=== PATIENT | male | born 1990 | race Caucasian/White ===

== ENCOUNTER 2017-01-03 07:31 | Inpatient (IN) | payer BC, OTHER ==
[~2017-01-03] VITALS: Ht 172.7 cm; Wt 81.6 kg
[~2017-01-03 07:31] MED LIST: CEPH-570 PO; DOXY100T2 PO; Gabapentin PO; HYDR-3895 PO; IBUP-1955 PO; LACT1CAP57 PO; METH-33 PO; MULT-465 PO; NAPR220C15 PO; OMEP20CA10 PO
[2017-01-03 12:05] VITALS: BP 120/65
[2017-01-03] MEDS ORDERED: BUPRENORPHINE HCL 2 MG TAB.SUBL SL PRN (13:45)
[2017-01-03] MEDS ORDERED: MAG HYDROX/AL HYDROX/SIMETH 30 ML LIQUID UDC PO PRN (13:45)
[2017-01-03] MEDS ORDERED: ACETAMINOPHEN 325 MG TABLET PO PRN (13:45)
[2017-01-03] MEDS ORDERED: LOPERAMIDE HCL 2 MG CAPSULE PO PRN ×2 (13:45)
[2017-01-03] MEDS ORDERED: MIRALAX 17 GM POWD.PACK PO PRN (13:45)
[2017-01-03] MEDS ORDERED: diphenhydrAMINE 50 MG CAPSULE PO PRN (13:45)
[2017-01-03] MEDS ORDERED: LORAZEPAM 1 MG TABLET PO PRN ×2 (13:45)
[2017-01-03] MEDS ORDERED: CLONIDINE HCL 0.1 MG TABLET PO PRN (13:45)
[2017-01-03] MEDS ORDERED: LORAZEPAM 2 MG/1 ML VIAL IM PRN (13:45)
[2017-01-03] MEDS ORDERED: MAGNESIUM HYDROXIDE 30 ML LIQUID UDC PO PRN (13:45)
[2017-01-03] MEDS ORDERED: DICYCLOMINE HCL 20 MG TABLET PO PRN (13:45)
[2017-01-03] MEDS ORDERED: HYDROXYZINE PAMOATE 25 MG CAPSULE PO PRN (13:45)
[2017-01-03] MEDS ORDERED: METHOCARBAMOL 750 MG TABLET PO PRN (13:45)
[2017-01-03] MEDS ORDERED: ONDANSETRON ODT 4 MG TAB.RAPDIS SL PRN (13:45)
[2017-01-03] MEDS ORDERED: CEPHALEXIN MONOHYDRATE 500 MG CAPSULE PO SCH (13:45)
--- NOTE | 2017-01-03 14:35 | NUR ---
ADMISSION NOTE VS:B/P:120/65, HR:124, SpO2:99% RA, RR:18, Temp:98.0, Pain 0/10. Height: 5'8, Weight:180 Allergies:EDDI Pt is a 26 year old male admitted to [facility] on 01/03/17 at 1157 under the care of Dr. Galarza for ETOH/Benzo/Opiate dependence. Pt denies SI/HI at this time. Pt is A/O x4. Pt reports being discharged from [facility] in Nov. Pt denies SOB and denies Chest pain. Pt reports increased heart rate is related to one time methamphetamine use last night. Pt did not bring any home medications. Upon assessment, skin is intact but closed abscess noted on left arm (anteriorly and posteriorly), MD is aware and has contacted wound team to assess. Pt also noted to have round lump on upper left back. CIWA 4, COWS 7 upon admission. Pt is Full code, regular diet. Pt denies having history of seizures and denies having a PCP. Breathing is even and unlabored, SpO2 is 99% room air. Pt ambulates with a steady gait. Pt states bowel habits are normal. Pt reports living with friends and moves around often. Hx of depression. Pt refuses the Flu and PNA vaccination. Pt states he smokes approximately [address] Galarza has been notified and has assessed client. All needs have been met. Pt has been oriented to room and unit. All safety measures in place per hospital policy. Bed in lowest position, side rails up x2, call light within reach. Will continue to monitor. Substance use: ETOH:Vodka/Beer-10oz vodka and 8 (12-16 oz) beers daily for 3 weeks, last drank 4 beers and 6 oz Vodka 01/03/17 at 0500. Xanax: 6mg for 3 weeks, last took 2mg 01/02/17 at 2200. Heroin:1/2gram for 3 weeks, last used 1/2 gram on 01/03/17 at 1100. Addendum: 01/03/17 at 1520 by TERESA HURT RN Pt reports smoking "a couple of hits" of methamphetamine last night but reports he has not used this drug other times.
[2017-01-03 14:59] LABS: BASOPHILS # (AUTO) 0.1 K/uL (0.0-0.2); BASOPHILS % (AUTO) 0.6 % (0.0-2.0); EOSINOPHILS % (AUTO) 0.2 % (0.0-7.0); HEMOGLOBIN 15.5 g/dL (14.0-18.0); LYMPHOCYTES # (AUTO) 2.3 K/uL (0.8-4.8); LYMPHOCYTES % (AUTO) 25.1 % (20.5-51.5); MEAN CORPUSCULAR HEMOGLOBIN 28.8 uug (27.0-31.0); MEAN CORPUSCULAR HGB CONC 34 g/dL (32.0-37.0); MEAN CORPUSCULAR VOLUME 85.3 fL (82.0-92.0); MONOCYTES # (AUTO) 0.7 K/uL (0.1-1.30); MONOCYTES % (AUTO) 8.2 % (0.0-11.0); NEUTROPHILS % (AUTO) 65.9 % (38.5-71.5); PLATELET COUNT (AUTO) 279 K/uL (150-450); RED BLOOD CELL COUNT(AUTO) 5.39 MIL/uL (4.70-6.10); RED CELL DISTRIBUTION WIDTH 13.2 % (11.5-14.5); WHITE BLOOD COUNT (AUTO) 9.1 K/uL (4.0-11.2)
[2017-01-03 15:05] LABS: *AMPHETAMINE, URINE POSITIVE (NEGATIVE); *BARBITURATE, URINE NEGATIVE (NEGATIVE); *CANNABINOID, URINE NEGATIVE (NEGATIVE); *COCCAINE, URINE NEGATIVE (NEGATIVE); *OPIATE, URINE POSITIVE (NEGATIVE); *PHENCYCLIDINE SCREEN,URINE NEGATIVE (NEGATIVE)
[2017-01-03 15:19] LABS: ALANINE AMINOTRANSFERASE 33 U/L (16-63); ALBUMIN 4.2 g/dL (3.4-5.0); ALKALINE PHOSPHATASE 43 U/L (50-136); ASPARTATE AMINOTRANSFERASE 26 U/L (15-37); BILIRUBIN,TOTAL 0.7 mg/dL (0.2-1.0); CALCIUM 9.3 mg/dL (8.5-10.1); CARBON DIOXIDE 26 mmol/L (21-32); CHLORIDE 100 mmol/L (98-107); CREATININE 1.1 mg/dL (0.6-1.3); GFR 80 mL/min (>60); GLUCOSE 122 mg/dL (74-106); POTASSIUM 3.3 mmol/L (3.5-5.1); SODIUM SERUM 139 mmol/L (136-145); TOTAL PROTEIN, SERUM 8.4 g/dL (6.4-8.2); UREA NITROGEN, BLOOD 14 mg/dL (7-18)
[2017-01-03 15:28] LABS: HIV-1 p24 ANTIGEN NON REACTIVE (NONREACTIVE); HIV-1/2 ANTIBODY NON REACTIVE (NONREACTIVE)
[2017-01-03 15:38] LABS: ETHANOL < 3 MG/DL (0-0)
[2017-01-03] MEDS: GABAPENTIN 300 MG CAPSULE PO SCH (16:51)
[2017-01-03] MEDS ORDERED: DOXYCYCLINE HYCLATE 100 MG TABLET PO SCH (17:00)
[2017-01-03] MEDS ORDERED: Medication Not On Formulary EA ([Gabapentin] (Neurontin) 300 MG) PO SCH (17:00)
[2017-01-03 17:20] VITALS: BP 107/64
--- NOTE | 2017-01-03 18:32 | NUR ---
END OF SHIFT Pt is a 26 year old male admitted for ETOH, Benzo and Opiate dependence. Pt is A/O x4. V/S remain WNL. EKG was completed. Pt is receiving PO antibiotics for abscess on arms, awaiting I&D consult. No PRN medications were needed or administered throughout shift. Pt has 3 day Subutex taper to be started on 01/04/17. Pt denies hx of seizures. Pt reports history of positive hep xc antibody, depression and sleeping disorder. MRSA swab collected, results are pending. Most recent COWS 4 and CIWA 4. All needs met at this time, safety precautions are in place, night time babysitter nurse to continue monitoring.
--- NOTE | 2017-01-03 19:45 | NUR ---
START OF SHIFT NOTE Received report from day shift nurse. Pt is 26 y o male, admitted on 01/03/17 for ETOH (8 x 12 -16oz beers and 10 oz of vodka daily for 3 weeks), Xanax (6 mg daily for 3 weeks), heroin (0.5 mg daily for 3 weeks), methamphetamine dependence. Pt placed on 3 day Subutex taper to be started 01/04/17; has prn Ativan available for tonight. Pt in room ,asleep. Awakened by verbal stimuli, oriented x 3. Pt reports mild anxiety, noted mild sweating. No tremors noted, pupils PERRLA 3 mm bilat. Noted closed abscess on left arm, pt is on PO antibiotics. Lung sounds clear bilat, heart rate regular. Pt denies n/v/, bowel sounds active 4. Pt denies urinary difficulties. PMH of depression, sleep disorder; Hep C. Pt full code, NKA, regular diet. Pt is on fall precautions. Side rails up x 2, call light within reach, bed locked in lowest position. Will continue with plan of care.
[2017-01-03 20:00] VITALS: BP 97/55
[2017-01-03] MEDS: SULFAMETH/TRIMETH 800/160 MG TABLET PO SCH (21:01)
[2017-01-03] MEDS: CEPHALEXIN MONOHYDRATE 500 MG CAPSULE PO SCH (21:01)
[2017-01-03] MEDS: LACTOBACILLUS RHAMNOSUS GG 1 EACH CAPSULE PO SCH (21:01)
[2017-01-04] VITALS: BP 102/57
[2017-01-04 04:11] VITALS: BP 100/55
[2017-01-04] MEDS ORDERED: POTASSIUM CHLORIDE 20 MEQ TAB.PRT.SR PO ONE (06:00)
[2017-01-04] MEDS: PANTOPRAZOLE SODIUM 40 MG TABLET.DR PO SCH (06:51)
--- NOTE | 2017-01-04 07:21 | NUR ---
END OF SHIFT NOTE Pt is 26 y o male, admitted on 01/03/17 for ETOH (8 x 12 -16oz beers and 10 oz of vodka daily for 3 weeks), Xanax (6 mg daily for 3 weeks), heroin (0.5 mg daily for 3 weeks), methamphetamine dependence. Pt is to start 3 day Subutex taper on 01/04/17; has prn Ativan available per CIWA scores. Pt was asleep for 11 hrs; withdrawal s/s included sweats, palpable tremors. VSS. Last COWS 4, CIWA 2. No prn medications were given. Labs revealed k level of 3.3, was replaced with KDur 40 meq at 0600 on 01/04/17. No prn medications were given. Pt has closed abscess on left arm, pt is on PO antibiotics, has order for moist warm compresses for 15 min q 1hr. PMH of depression, sleep disorder; Hep C. Pt full code, NKA, regular diet. Pt is on fall precautions. Report endorsed to day shift nurse.
[2017-01-04 08:00] VITALS: BP 113/66
--- NOTE | 2017-01-04 08:00 | NUR ---
START OF SHIFT Pt 26 y/o male admitted for etoh benzo opiate withdrawal. Pt received in room with eyes closed resting, but easily arousable to name. Pt alert and oriented to name, place, and time. Perrla. Skin warm and slightly moist to touch. Respirations even unlabored. It was reported that pt slept for 11 hours last night. Bed on lowest position with side rails x2 up for safety. Call light within reach. No distress noted at this time.
[2017-01-04] MEDS: SULFAMETH/TRIMETH 800/160 MG TABLET PO SCH (09:00)
[2017-01-04] MEDS ORDERED: Medication Not On Formulary EA (Omeprazole 1 CAP) PO SCH (09:00)
[2017-01-04] MEDS: DOCUSATE SODIUM 250 MG CAPSULE PO SCH (09:00)
[2017-01-04] MEDS: CEPHALEXIN MONOHYDRATE 500 MG CAPSULE PO SCH ×4 (09:00→22:11)
[2017-01-04] MEDS: GABAPENTIN 300 MG CAPSULE PO SCH ×3 (09:00→17:01)
[2017-01-04] MEDS: LACTOBACILLUS RHAMNOSUS GG 1 EACH CAPSULE PO SCH ×2 (09:00→22:11)
[2017-01-04] MEDS: BUPRENORPHINE HCL 2 MG TAB.SUBL SL SCH ×2 (09:00→22:12)
[2017-01-04] MEDS ORDERED: TUBERCULIN,PURIF.PROT.DERIV. 5 TU/0.1 ML TEST ID ONE (09:00)
[2017-01-04] MEDS: MULTIVITAMINS,THERAPEUTIC TABLET PO SCH (09:00)
[2017-01-04] MEDS ORDERED: 3 DAY TAPER BUPRENORPHINE -SERENITY PROTOCOL SL PRN (09:00)
[2017-01-04 10:07] LABS: HCV AB >11.0 s/co ratio (0.0-0.9); HEPATITIS B CORE AB, IgM Negative (Negative); HEPATITIS B SURFACE AG Negative (Negative)
--- NOTE | 2017-01-04 11:30 | NUR ---
PRN COWS=14. Pt observed in bed with visible perspiration and c/o body aches, goosebumps, and runny nose. Subutex 4mg po prn per MD order given and tolerated well.
--- NOTE | 2017-01-04 11:47 | NUR ---
PRN Pt with c/o anxiety. Catapres po prn per MD order given and tolerated well.
[2017-01-04 12:00] VITALS: BP 110/61
[2017-01-04 16:00] VITALS: BP 108/61
--- NOTE | 2017-01-04 18:28 | NUR ---
END OF SHIFT Pt 26 y/o male admitted for etoh benzo opiate withdrawal. Pt alert and oriented to name, place, and time. Perrla. Skin warm and slightly moist to touch. Respirations even unlabored. Pt observed in room all day mostly in bed. Pt did not attend group activity even with encouragement. Pt was seen Pt was seen by infectious disease doctor this evening. Pt medication compliant and tolerated well. No ASE noted. Bed on lowest position with side rails x2 up for safety. Call light within reach. No distress noted at this time.
--- NOTE | 2017-01-04 19:15 | NUR ---
START OF SHIFT Received 26 year old male patient admitted on 01/03/17 for ETOH, Benzo, heroin and methamphetamine dependency. Pt is full code with NKA. He reports a PMhx of Hep C +, depression and sleep disorder. He reports drinking vodka 10 oz, and beer 12-16 oz daily for 3 weeks. Last dose was 4 beers and 6 oz of vodka on 01/03/17. Xanax 6 mg daily for 3 weeks. Last dose 2 mg on 01/02/17 and Heroin 0.5 gram daily for 3 weeks. Last dose 0.5 gram on 01/03/17. And Methamphetamine IV " couple of hits" Last dose was on 01/02/17. Pt placed on 3 day Subutex taper and has PRN Ativan available. Per endorsement, pt with left arm abscess and has new order for Bactrim IV. Pt is alert and oriented x4, breathing is even and unlabored, safety measures in place. Will continue to monitor.
[2017-01-04 20:00] VITALS: BP 116/72
--- NOTE | 2017-01-04 20:29 | NUR ---
NURSING NOTE Pt refused warm compress. Risks/benefits explained x3, pt still refused. Encouraged pt to keep left arm elevated. Pt verbalized understanding. Breathing even and unlabored, safety measures in place. Will continue to monitor.
[2017-01-04] MEDS: SULFAMETHOXAZOL/TRIMETHOPRI IV 20 ML in IV DEXTROSE 5% 500 ML IV SCH (21:00)
[2017-01-04] MEDS ORDERED: SULFAMETHOXAZOL/TRIMETHOPRI IV 15 ML in IV DEXTROSE 5% 250 ML IV SCH (22:00)
[2017-01-04] MEDS: IBUPROFEN 600 MG TABLET PO PRN (22:10)
[2017-01-04] MEDS: TRAZODONE 100 MG TABLET PO PRN (22:13)
--- NOTE | 2017-01-04 22:13 | NUR ---
PRN MOTRIN/TRAZODONE Pt complains of headache 3/10 and inability to sleep. PRN Motrin and Trazodone administered as ordered. Breathing even and unlabored. Safety measures in place. Will continue to monitor effectiveness.
--- NOTE | 2017-01-04 22:43 | NUR ---
NURSING NOTE 22 gauge IV inserted to right wrist. Patent and flushing well. No s/s of infiltration noted. Will continue to monitor.
--- NOTE | 2017-01-04 23:13 | NUR ---
PRN MOTRIN/TRAZODONE REASSESSMENT Pt reports Motrin to be effective for headache. PRN Trazodone ineffective. Pt still awake at this time lying in bed watching TV. Breathing even and unlabored, respirations 16, safety measures in place. Will continue to monitor.
--- NOTE | 2017-01-05 | NUR ---
VITALS 0000 vitals refused by pt at beginning of shift. Pt lying in bed with eyes closed noted to be asleep. Respirations 16, breathing is even and unlabored, safety measures in place. Will continue to monitor. Addendum: 01/05/17 at 0021 by RUSTY WELLS RN Amended: Links added.
--- NOTE | 2017-01-05 04:00 | NUR ---
VITALS 0400 vitals refused by pt at beginning of shift. Pt lying in bed with eyes closed noted to be asleep. Respirations 16, breathing is even and unlabored, safety measures in place. Will continue to monitor.
[2017-01-05] MEDS: PANTOPRAZOLE SODIUM 40 MG TABLET.DR PO SCH (06:57)
--- NOTE | 2017-01-05 06:57 | NUR ---
MEDICATION REFUSAL Pt refused 0700 of Protonix. R/B explained x3, pt still refused.
--- NOTE | 2017-01-05 07:05 | NUR ---
END OF SHIFT Pt is a 26 year old male patient admitted on 01/03/17 for ETOH, Benzo, heroin and methamphetamine dependency. Pt is full code with NKA. He reports a PMhx of Hep C +, depression and sleep disorder. Pt placed on 3 day Subutex taper and has PRN Ativan available. Pt with right wrist 22 gauge IV patent and flushing well. Pt received Bactrim IV at 260 mL/hr every 12 hours. He received PRN Motrin and Trazodone. He slept a total of 5 hrs, Intake: 1,000mL, Void: x2, BM: x1, COWS:7, CIWA: 6. Pt remains alert and oriented x4, breathing is even and unlabored, safety measures in place. Endorsed to oncoming nurse.
--- NOTE | 2017-01-05 07:50 | NUR ---
START OF SHIFT NOTE: REPORT RECEIVED FROM LEATHER LEVELER NURSE. PT IS A 26YO MALE ADMITTED ON 01/03/17 FOR MEDICALLY SUPERVISED WITHDRAWAL: PT REPORTS DRINKING 8 10OZ BEERS, TAKING 6MG XANAX, USING 0.5GM HEROIN DAILY FOR 3 WEEKS. PT IS ON DAY 2 OF A 3-DAY SUBUTEX TAPER. LAST LEATHER LEVELER COWS=7, CIWA=6. PT RECEIVED PRN MOTRIN AND PRN TRAZODONE THROUGHOUT THE NIGHT. PT IS ON REGULAR DIET. PT REPORTS MED HX OF HEP-C ANTIBODIES, DEPRESSION, AND SLEEP DO. PT REPORTS NKA AND IS A FULL CODE. PT IS CURRENTLY IN BED WITH BLANKET OVER HIS HEAD, RESPONDS TO QUESTIONS WITH SHORT, ONE-WORD RESPONSES AND NOTED TO BE AGITATED. ALL NEEDS ATTENDED AND MET AT THIS TIME. WILL CONTINUE TO MONITOR.
[2017-01-05 08:00] VITALS: BP 88/40
[2017-01-05] MEDS: SULFAMETHOXAZOL/TRIMETHOPRI IV 20 ML in IV DEXTROSE 5% 500 ML IV SCH (08:42)
[2017-01-05] MEDS: MULTIVITAMINS,THERAPEUTIC TABLET PO SCH (08:43)
[2017-01-05] MEDS: GABAPENTIN 300 MG CAPSULE PO SCH ×3 (08:43→17:37)
[2017-01-05] MEDS: LACTOBACILLUS RHAMNOSUS GG 1 EACH CAPSULE PO SCH ×2 (08:43→22:02)
[2017-01-05] MEDS: DOCUSATE SODIUM 250 MG CAPSULE PO SCH (08:43)
[2017-01-05] MEDS: CEPHALEXIN MONOHYDRATE 500 MG CAPSULE PO SCH ×4 (08:43→22:02)
[2017-01-05] MEDS: BUPRENORPHINE HCL 2 MG TAB.SUBL SL SCH ×3 (09:00→22:02)
--- NOTE | 2017-01-05 09:00 | NUR ---
Subutex Non-Admin Scheduled dose of Subutex 4mg not administered d/t decreased BP of 88/40. Addendum: 01/05/17 at 1631 by LAMBERTO CAVAZOS RN MD rojas robles
--- NOTE | 2017-01-05 09:15 | NUR ---
Behavioral Note: Pt connected to IV for Bactrim administration. Pt requested to be disconnected to go smoke. Pt was told to wait a few minutes until primary nurse completed another pt's med pass. Pt disconnected self from IV, leaving tubing loose and dripping fluid. Pt instructed that he would be placed on room restriction if occurred again.
[2017-01-05 12:00] VITALS: BP 110/69
[2017-01-05] MEDS: SULFAMETHOXAZOL/TRIMETHOPRI IV 15 ML in IV DEXTROSE 5% 250 ML IV SCH ×2 (14:59→22:02)
[2017-01-05 16:00] VITALS: BP 101/53
--- NOTE | 2017-01-05 19:15 | NUR ---
START OF SHIFT Received 26 year old male patient admitted on 01/03/17 for ETOH, Benzo, heroin and methamphetamine dependency. Pt is full code with NKWan. He reports a PMhx of Hep C +, depression and sleep disorder. He reports drinking vodka 10 oz, and beer 12-16 oz daily for 3 weeks. Last dose was 4 beers and 6 oz of vodka on 01/03/17. Xanax 6 mg daily for 3 weeks. Last dose 2 mg on 01/02/17 and Heroin 0.5 gram daily for 3 weeks. Last dose 0.5 gram on 01/03/17. And Methamphetamine IV " couple of hits" Last dose was on 01/02/17. Pt placed on 3 day Subutex taper and tolerating well. Per endorsement, pt did not receive Subutex in AM d/t decreased BP and refused warm compress. Pt is alert and oriented x4, breathing is even and unlabored, safety measures in place. Will continue to monitor.
--- NOTE | 2017-01-05 19:29 | NUR ---
END OF SHIFT NOTE: PT IS A 26YO MALE ADMITTED TO [facility] ON 01/03/17 FOR MEDICALLY SUPERVISED WITHDRAWAL FROM ETOH, OPIATES, BENZOS. PT REPORTS DRINKING 8 10OZ BEERS, TAKING 6MG XANAX, USING 0.5GM HEROIN DAILY FOR 3 WEEKS. PT CONTINUES ON DAY 2 OF A 3-DAY SUBUTEX TAPER. LAST COWS=1; SCHEDULED SUBUTEX TAPER EFFECTIVELY MANAGED S/S OF WITHDRAWAL AND NO PRN MEDICATIONS WERE NECESSARY. 09:00 DOSE OF SUBUTEX HELD FOR DECREASED BP. PT IS ON REGULAR DIET. PT REPORTS MED HX OF HEP-C ANTIBODIES, DEPRESSION, AND SLEEP DO. PT REPORTS NKA AND IS A FULL CODE. PT CONSUMED 50% OF BREAKFAST AND LUNCH, AND 100% OF DINNER, HAD INTAKE 1500ML ORAL AND 525ML IV FLUIDS, OUTPUT URINE X2 AND STOOL X0. PT HAS 22G IN RIGHT WRIST, SITE IS PATENT AND INTACT, FLUSHES EASILY. PT ENDORSED TO RINKMAN NURSE.
[2017-01-05 20:00] VITALS: BP 116/70
--- NOTE | 2017-01-05 20:30 | NUR ---
NURSING NOTE Pt refused warm compress. R/B explained x3, pt still refused. Encouraged pt to keep left arm elevated. Pt verbalized understanding. Breathing even and unlabored, safety measures in place. Will continue to monitor.
[2017-01-05] MEDS: TRAZODONE 100 MG TABLET PO PRN (22:01)
--- NOTE | 2017-01-05 22:01 | NUR ---
PRN TRAZODONE Pt complains of inability to sleep. PRN Trazodone administered as ordered. Breathing even and unlabored, safety measures in place. Will continue to monitor.
--- NOTE | 2017-01-05 22:45 | NUR ---
IV REINSERTION 22 gauge IV on right wrist dislodged and leaking. 22 gauge IV reinserted by ER nurse to left upper arm. Patent and flushing well. No s/s of infiltration noted. Will continue to monitor.
--- NOTE | 2017-01-05 23:01 | NUR ---
PRN TRAZODONE REASSESSMENT PRN medication somewhat effective. Pt still awake at this time watching TV in room. Pt appears drowsy. Breathing is even and unlabored, safety measures in place. Will continue to monitor.
--- NOTE | 2017-01-06 | NUR ---
VITALS 0000 vitals were refused by pt at beginning of shift. Pt lying in bed with eyes closed noted to be asleep. Breathing even and unlabored,respirations 16, safety measures in place. Will continue to monitor.
--- NOTE | 2017-01-06 04:00 | NUR ---
VITALS 0400 vitals were refused by pt at beginning of shift. Pt lying in bed with eyes closed noted to be asleep. Breathing even and unlabored,respirations 16, safety measures in place. Will continue to monitor.
[2017-01-06] MEDS: SULFAMETHOXAZOL/TRIMETHOPRI IV 15 ML in IV DEXTROSE 5% 250 ML IV SCH ×3 (06:55→22:11)
[2017-01-06] MEDS: PANTOPRAZOLE SODIUM 40 MG TABLET.DR PO SCH (06:59)
--- NOTE | 2017-01-06 07:00 | NUR ---
MEDICATION REFUSAL Pt refused 0700 of Protonix. R/B explained x3, pt still refused. Breathing is even and unlabored, safety measures in place.
--- NOTE | 2017-01-06 07:08 | NUR ---
END OF SHIFT Pt is a 26 year old male patient admitted on 01/03/17 for ETOH, Benzo, heroin and methamphetamine dependency. Pt is full code with NKA. He reports a PMhx of Hep C +, depression and sleep disorder. Pt placed on 3 day Subutex taper and tolerating well. Pt received PRN Trazodone d/t inability to sleep. PRN medication was effective. Pt also received IV reinsertion to left upper arm 22 gauge. Patent and flushing well. Pt still continues on Bactrim IV 265 mL/hr every 8 hours. He slept a total of 8hrs, Intake: 500 mL, Void: x1, BM:0. COWS:1, CIWA:3. Pt remains alert and oriented x4, breathing is even and unlabored, safety measures in place. Will endorse to oncoming shift.
--- NOTE | 2017-01-06 07:15 | NUR ---
Start Of Shift Received 26 year old male patient admitted on 01/03/17 for ETOH, Benzo, heroin and methamphetamine dependency. Pt is full code, regular diet on fall precautions, denies food or drug allergies. He reports a PMhx of Hep C +, depression and sleep disorder. Pt placed on 3 day Subutex taper and tolerating well. Pt has and abscess on left arm, for which he is receiving IV antibiotics 22G IV on Left arm patent intact no s.s of infiltration. last COWS:1 taken at 0400. Pt received PRN Trazodone. Per endorsement, pt refused warm compress. All safety measures in place, will continue to monitor.
[2017-01-06 08:00] VITALS: BP 100/67
[2017-01-06] MEDS: BUPRENORPHINE HCL 2 MG TAB.SUBL SL SCH ×2 (09:00→09:22)
[2017-01-06] MEDS: MULTIVITAMINS,THERAPEUTIC TABLET PO SCH (09:22)
[2017-01-06] MEDS: DOCUSATE SODIUM 250 MG CAPSULE PO SCH (09:22)
[2017-01-06] MEDS: LACTOBACILLUS RHAMNOSUS GG 1 EACH CAPSULE PO SCH ×2 (09:22→20:32)
[2017-01-06] MEDS: CEPHALEXIN MONOHYDRATE 500 MG CAPSULE PO SCH ×4 (09:22→20:32)
[2017-01-06] MEDS: GABAPENTIN 300 MG CAPSULE PO SCH ×3 (09:22→17:11)
--- NOTE | 2017-01-06 09:30 | NUR ---
Refused medication Pt refused his scheduled Subutex in the morning. Pe educated about the [id number] of medication compliance and the consequences of not taking the medications, pt verbalized understanding but still refused the medication. MD contacted and notified. all needs met will continue to monitor.
[2017-01-06 12:00] VITALS: BP 102/63
[2017-01-06 16:00] VITALS: BP 110/65
--- NOTE | 2017-01-06 19:16 | NUR ---
End Of Shift Received 26 year old male patient admitted on 01/03/17 for ETOH, Benzo, heroin and methamphetamine dependency. Pt is full code, regular diet on fall precautions, denies food or drug allergies. He reports a PMhx of Hep C +, depression and sleep disorder. Pt placed on 3 day Subutex taper which he has completed and tolerated well. Pt has and abscess on left arm, for which he is receiving IV antibiotics 22G IV on Left arm patent intact no s.s of infiltration during the day pt finished his Bactrim 265ml/hr. He has received all of his scheduled medications but has refused his morning last dose of Subutex 2mg pt also refused warm compress and to elevate his arm, pt educated on importance of compliance but still refused. Pts last COWS:1 taken at 1600. Pt did not receive any PRN medications during the day shift. Pt did not participate in any groups or activities. Pt ate all of the meals, Pt stated that medications and treatments are working well at controlling withdrawals, evidenced by low assessment scores ranging from 5-2. Pt is A&Ox4 VS WNL respiration even unlabored denies nausea vomiting and diarrhea. pts total fluid intake is 500ml with 1 void and no stool. all safety measures in place, all pertinent information discussed with cigar packing examiner endorsement given to cigar packing examiner nurse.
--- NOTE | 2017-01-06 19:30 | NUR ---
START OF SHIFT NOTE-- Pt is a 26 year old male patient admitted on 01/03/17 for ETOH, Benzo, heroin and methamphetamine dependency. Pt is full code, regular diet,no known allergies. PMhx of Hep C +, depression and sleep disorder. Pt has completed his Subutex taper and tolerated well. Pt has and abscess on left arm, for which he is receiving IV antibiotics 22G IV on Left arm patent intact no s.s of infiltration noted. Pts last COWS:1 taken at 1600.Pt is A&Ox4 VS WNL respiration even unlabored. All safety measures in place,call light within reach,will continue to monitor.
[2017-01-06 20:00] VITALS: BP 101/60
--- NOTE | 2017-01-06 21:00 | NUR ---
DR GABE VALDEZ WAS HERE AND SPOKE TO PT ABOUT INCISION, DRAINAGE AND DEBRIDEMENT OF HIS LEFT ARM ABSCESS.PT CONSENTED TO SURGERY.FORM SIGNED.SURGERY TO BE DONE TOMORROW MORNING.
--- NOTE | 2017-01-06 23:15 | NUR ---
IV REINSERTION 22 gauge IV on left arm dislodged and leaking. 22 gauge IV reinserted by ER nurse to left upper arm. Patent and flushing well. No s/s of infiltration noted. Will continue to monitor.
[2017-01-06] MEDS: TRAZODONE 100 MG TABLET PO PRN (23:35)
--- NOTE | 2017-01-06 23:37 | NUR ---
PRN MED--- PRN TRAZODONE GIVEN ORDERED FOR FOR C/O INSOMNIA,PER PT REQUEST.WILL MONITOR FOR EFFECTIVENESS.
--- NOTE | 2017-01-07 00:30 | NUR ---
REFUSED V/S AND COWS-- PT OBSERVED SLEEPING,PRN TRAZODONE IS EFFECTIVE.REFUSED V/S;BREATHING IS EVEN AND NON LABORED.NO S/S OF DISTRESS NOTED.WILL CONTINUE TO MONITOR.
--- NOTE | 2017-01-07 04:00 | NUR ---
REFUSED V/S AND COWS-- PT OBSERVED TO BE FAST ASLEEP.REFUSED V/S;BREATHING IS EVEN AND NON LABORED.NO S/S OF DISTRESS NOTED.WILL CONTINUE TO MONITOR.
[2017-01-07] MEDS: SULFAMETHOXAZOL/TRIMETHOPRI IV 15 ML in IV DEXTROSE 5% 250 ML IV SCH ×3 (05:57→21:12)
--- NOTE | 2017-01-07 06:47 | NUR ---
END OF SHIFT HAILY-- Pt is a 26 year old male patient admitted on 01/03/17 for ETOH, Benzo, heroin and methamphetamine dependency. Pt is full code, regular diet,no known allergies. PMhx of Hep C +, depression and sleep disorder. Pt has completed his Subutex taper and tolerated well. Pt has and abscess on left arm, for which he is receiving IV antibiotics 22G IV on Left upper arm, patent intact no s/s of infiltration noted. Pts last COWS=1 taken at 1999,last night.Pt is A&Ox4 VS WNL.PRN Trazodone was given last night for insomnia with good effect.Pt slept 6 hrs; fluid intake was 855 mls; urine x 1 .All safety measures in place,call light within reach,will continue to monitor.
[2017-01-07] MEDS: PANTOPRAZOLE SODIUM 40 MG TABLET.DR PO SCH (07:00)
--- NOTE | 2017-01-07 07:12 | NUR ---
Start of shift note SBAR report rcv'd. pt was admitted for opiate dependence. Pt has completed a 3 day subutex taper and was on PRN ativan. Pt has a PMH of Hep C, depression and a sleep disorder. Pt has an abscess to his left arm and is on two antibiotics for treatment and is scheduled to have an I&D done today. Pt is currently resting in bed, respirations are even and unlabored, pt has no complaints at this time. Bed is locked in a low position, call light within reach, side rails up x2. Will continue to monitor pt. All needs addressed at this time.
[2017-01-07 08:00] VITALS: BP 99/60
[2017-01-07] MEDS ORDERED: LIDOCAINE 1%-EPI 1:100,000 20 ML VIAL TP PRN (08:00)
[2017-01-07] MEDS ORDERED: SILVER NITRATE APPLICATOR STICK EACH TP PRN (09:15)
[2017-01-07] MEDS: DOCUSATE SODIUM 250 MG CAPSULE PO SCH (09:37)
[2017-01-07] MEDS: CEPHALEXIN MONOHYDRATE 500 MG CAPSULE PO SCH ×4 (09:37→21:11)
[2017-01-07] MEDS: MULTIVITAMINS,THERAPEUTIC TABLET PO SCH (09:37)
[2017-01-07] MEDS: LACTOBACILLUS RHAMNOSUS GG 1 EACH CAPSULE PO SCH ×2 (09:37→21:11)
[2017-01-07] MEDS: GABAPENTIN 300 MG CAPSULE PO SCH ×3 (09:37→17:21)
[2017-01-07 12:00] VITALS: BP 111/58
[2017-01-07 13:28] LABS: *AMPHETAMINE, URINE NEGATIVE (NEGATIVE); *BARBITURATE, URINE NEGATIVE (NEGATIVE); *CANNABINOID, URINE NEGATIVE (NEGATIVE); *COCCAINE, URINE NEGATIVE (NEGATIVE); *OPIATE, URINE POSITIVE (NEGATIVE); *PHENCYCLIDINE SCREEN,URINE NEGATIVE (NEGATIVE)
[2017-01-07] MEDS: IBUPROFEN 600 MG TABLET PO PRN (14:44)
--- NOTE | 2017-01-07 14:44 | NUR ---
PRN administration Pt had I&D and has a pain level of 10/10, administered tylenol and motrin PRN. Will continue to monitor pt.
--- NOTE | 2017-01-07 15:55 | NUR ---
Reassessment Pt states that his pain level is 4/10. Pt states that he is ok and does not want anything further at this time. Will continue to monitor pt.
[2017-01-07 16:00] VITALS: BP 121/76
--- NOTE | 2017-01-07 18:47 | NUR ---
End of shift note pt was admitted for opiate dependence. Pt has completed a 3 day subutex taper and was on PRN ativan successfully without any ASE. Pt has a PMH of Hep C, depression and a sleep disorder. Pt has an abscess to his left arm and successfully had an I&D done by Dr Juarez, cultures were sent to the lab. Pt is compliant with care. Pt had a PRN dose of tyelnol and motrin with some effectiveness after his I&D procedure. Pt states that he is ok, but that his arm is sore. All needs addressed at this time. Will continue to monitor the pt. Will endorse SBAR to oncoming shift. Pt had 1BM, 5 voids and had 2256ml intake.
[2017-01-07] MEDS ORDERED: KETOROLAC TROMETHAMINE 30 MG INJ IM PRN (19:30)
[2017-01-07 20:00] VITALS: BP 128/86
--- NOTE | 2017-01-07 20:00 | NUR ---
Start of Shift Pt is a 26-year old, male, admitted for Opiate dependence. Pt has completed a 3 day subutex taper and was on PRN ativan. Pt tolerated taper well. Pt has a PMHx of Hep C, Depression and Sleep Disorder. Pt has an abscess to his left arm and is on two antibiotics for treatment. I&D done 01/07/[address] Augie Juarez. Dressing on the left arm is clean, dry and intact. With wound care order. IV access on the left upper arm is patent and intact, saline flush done, no resistance noted. Pt is AAOx4, no SOB nor anxiety noted at this time. Pt is ambulatory with steady gait. No skin issues besides the I&D done by MD. . Fall, universal, seizure and safety prec in place. Call light within reach. Kept pt warm, dry and comfortable. Last COWS=1, CIWA=1. Will continue to monitor.
--- NOTE | 2017-01-07 21:12 | NUR ---
RN note PRN Toradol Pt c/o pain on post I&d site=05/15. Administered Toradol 30 mg IM. No bleeding noted. No SOB observed. Will monitor and reassess.
--- NOTE | 2017-01-07 21:45 | NUR ---
RN note Dressing Change Pt's dressing noted to be soaked with pinkish to reddish fluid. Dressing change and wound care done as ordered, tolerated well. Picture of s/p I&D site taken and filed on chart.
--- NOTE | 2017-01-07 21:55 | NUR ---
RN note reassess Pt verbalized decrease on pain level to 2-3/10. Toradol effective.
[2017-01-07] MEDS ORDERED: SULF1TAB48 PO (23:35)
[2017-01-07] MEDS ORDERED: CLON0.1T14 PO (23:35)
[2017-01-07] MEDS ORDERED: Cephalexin Monohydrate PO (23:35)
--- NOTE | 2017-01-08 00:10 | NUR ---
RN note Vital Signs Refusal Pt refused Vital Signs check and COWS/CIWA assessment despite explanation of risks and benefits. No SOB noted. RR=16. Will continue to monitor.
[2017-01-08] MEDS: SULFAMETHOXAZOL/TRIMETHOPRI IV 15 ML in IV DEXTROSE 5% 250 ML IV SCH (05:53)
[2017-01-08] MEDS: PANTOPRAZOLE SODIUM 40 MG TABLET.DR PO SCH (06:06)
[2017-01-08] MEDS ORDERED: SODIUM HYPOCHLORITE 0.125% 473 ML BOTTLE TP SCH (07:00)
--- NOTE | 2017-01-08 07:28 | NUR ---
End of Shift Pt is a 26-year old, male, admitted for Opiate dependence. Pt has completed a 3 day subutex taper and was on PRN ativan. Pt tolerated taper well. Pt has a PMHx of Hep C, Depression and Sleep Disorder. Pt has an abscess to his left arm and is on two antibiotics for treatment. I&D done 01/07/[address] Augie Juarez. Dressing on the left arm is clean, dry and intact. With wound care order. IV access on the left upper arm is patent and intact, saline flush done, no resistance noted. Pt is AAOx4, no SOB nor anxiety noted at this time. Pt is ambulatory with steady gait. No skin issues besides the I&D done by MD. Fall, universal, seizure and safety prec in place. Call light within reach. Kept pt warm, dry and comfortable. Last COWS=2, CIWA=2, slept for 6 hours. For discharge today and patient is aware. Educated regarding importance of daily dressing change. Endorsed to AM shift nurse for continuity of care.
--- NOTE | 2017-01-08 07:30 | NUR ---
START OF SHIFT NOTE: RECEIVED PT FROM MIX HOUSE TENDER NURSE, PT IS IN STABLE CONDITION AT THIS TIME., PT COMPLETED LAST DOSE OF ATB THERAPY FOR WOUND CARE. PT IS ADMITTED TO [facility] FOR OPIATE/BENZO/ETOH/METH WITHDRAWAL/DEPENDENCE. PT WITHOUT A/R TO [facility]. PT COMPLETED TAPER. WILL ASSIST PT IN DISCHARGING AND WILL CONTINUE TO MONITOR PT FOR ANY CHANGES.
--- NOTE | 2017-01-08 08:27 | NUR ---
DISCHARGE NOTE: PT LEFT THE UNIT IN STABLE CONDITION NO S/S OF PAIN,DISCOMFORT, OR ANY WITHDRAWAL SYMPTOMS. PT TEACHING WAS ADMINISTERED DISCHARGE AND WOUND CARE. PT VERBALIZED UNDERSTANDING, PT WILL BE TRANSFERRED TO [facility] VIA PRIVATE CAR. Addendum: 01/08/17 at 0955 by TRINH RICHMOND RN IV SITE WAS DISCONTINUED PRIOR TO DISCHARGING, PT LEFT WITH ALL PERSONAL BELONGINGS
== END 2017-01-08 08:27 | disposition home or self-care (01) | DRG 982 ==
LOC: SRC 11:03
PROVIDERS: ADMIT Internal Medicine; ATTEND Internal Medicine
PROC: HZ2ZZZZ Detoxification Services for Substance Abuse Treatment (ICD-10-PCS; principal; 2017-01-03)
PROC: HZ51ZZZ Individual Psychotherapy for Substance Abuse Treatment, Behavioral (ICD-10-PCS; 2017-01-04)
PROC: 0JBH0ZZ Excision of Left Lower Arm Subcutaneous Tissue and Fascia, Open Approach (ICD-10-PCS; 2017-01-07)
DX: F11.23 Opioid dependence with withdrawal (principal); L03.114 Cellulitis of left upper limb; L02.414 Cutaneous abscess of left upper limb; F10.239 Alcohol dependence with withdrawal, unspecified; F13.10 Sedative, hypnotic or anxiolytic abuse, uncomplicated; Y90.9 Presence of alcohol in blood, level not specified; S51.832S Puncture wound without foreign body of left forearm, sequela; W26.8XXS Contact with other sharp object(s), not elsewhere classified, sequela; F17.210 Nicotine dependence, cigarettes, uncomplicated; F32.9 Major depressive disorder, single episode, unspecified; Z59.0 Homelessness; K75.9 Inflammatory liver disease, unspecified; F15.90 Other stimulant use, unspecified, uncomplicated; F41.9 Anxiety disorder, unspecified; Z79.899 Other long term (current) drug therapy
CPT/HCPCS: 36415; 80307; 80324; 80361; 83735; 85025; 86580; 86592; 86705; 86803; 87070; 87340; 87806; 93005; A4663; G6040-TC; J1885; J3490; J7060